=== PATIENT | male | born 1990 | race Caucasian/White ===

== ENCOUNTER 2020-10-01 17:20 | Emergency (ER) | payer OTHER, SELFPAY ==
--- NOTE | 2020-10-01 18:04 | ED_ITS ---
HPI - General Adult General Chief complaint: Upper Respiratory Symptoms Stated complaint: Flu like symptoms Time Seen by Provider: 10/01/20 17:57 Source: patient Limitations: no limitations History of Present Illness HPI narrative: Patient comes emergency room complaining of subjective fever, chills, headache for, not feeling well for 2-3 days. Patient states he tested negative for COVID-19 over a month ago. Patient denies fever, chills Onset (ago): day(s) Related Data Previous Rx's Medication Instructions Recorded ibuprofen 600 mg PO TID PRN #14 tab 10/01/20 Allergies Allergy/AdvReac Type Severity Reaction Status Date / Time No Known Allergies Allergy Verified 08/02/20 13:09 Review of Systems Review of Systems: Constitutional : Complaining of general malaise and fatigue, subjective fever and chills ENT/Mouth : No Hearing loss, No Ear Pain, No Nasal Congestion, No Sinus Pain, No Hoarseness, No sore throat, No Rhinorrhea, No Swallowing Difficulty Eyes: No Eye Pain, No Swelling, No Redness, No Foreign Body, No Discharge, No Vision Changes Cardiovascular : No Chest Pain, No SOB, No Dyspnea on Exertion, No Orthopnea, No Edema, No Palpitations Respiratory : No Cough, No Sputum, No Wheezing, No Smoke Exposure, No Dyspnea Gastrointestinal : No Nausea, No Vomiting, No Diarrhea, No Constipation, No abdominal Pain, No Hematochezia, No Melena Genitourinary : no irregular bleeding, No Dysuria, No Urinary Frequency, No Hematuria, No Urinary Incontinence, No Urgency, No Flank Pain, No Urinary Flow Changes, No Hesitancy Musculoskeletal : No joint pain, No Myalgias, No Joint Swelling Skin : No Skin Lesions, No rash Neuro : No Weakness, No Numbness, No Paresthesias, No Loss of Consciousness, No Dizziness, patient complaining of headache Psych : No Anxiety/Panic, No Depression, No SI/HI/AH/VH, No Social Issues, Heme/Lymph: No Bruising, No Bleeding,No Lymphadenopathy Endocrine : No Polyuria, No Polydipsia, No Temperature Intolerance [facility] Family History Family History (Updated 08/02/20 @ 13:15 by Marcela Ferrell, RMA, SHELL FREEZING MACHINE OPERATOR) Father Unknown family medical history Mother No problems noted. Maternal Grandfather No problems noted. Maternal Grandmother No problems noted. Paternal Grandfather No problems noted. Paternal Grandmother No problems noted. Brother No problems noted. Brother No problems noted. Sister No problems noted. Sister No problems noted. Sister No problems noted. Sister No problems noted. Social History Social History Alcohol intake: never Smoking Status: Never smoker Substance Use Type: Marijuana Substance Use Frequency: Occasionally Advance Directives: No Advance Directives Information Provided: No Physical Exam Vital Signs: Vital Signs: Last Vital Signs Temp 96.8 F 10/01/20 18:46 Pulse 60 10/01/20 18:46 Resp 17 10/01/20 18:46 BP 123/70 10/01/20 18:46 Pulse Ox 100 10/01/20 18:46 Body Mass Index 19.8 Appearance: Alert. Oriented X3. No acute distress. Eyes: Pupils equal, round and reactive to light. ENT: Pharynx normal. Neck: Normal inspection. Neck supple. No lymph nodes noted. No crepitus CVS: Normal heart rate and rhythm. Pulses normal. Normal S1 and S2 Respiratory: No respiratory distress. Breath sounds normal. No Wheezing. No rales Abdomen: Soft and nontender. No rigidity. No distention. good BS x4 Skin: Skin warm and dry. Normal skin color. Normal skin turgor. Extremities: No lower extremity edema. No lower extremity edema. No Lacerations. No Rash Neuro: Oriented X 3. No motor deficit. No sensory deficit. Moving all extermities. No slurred speech. Course Course Course Narrative: Patient's vitals within normal limits, patient tested for COVID-19. Discharge Plan Discharge Clinical Impression: Viral infection Patient Disposition: Home, Self-Care Instructions: Viral Syndrome (ED) Additional Instructions: You were tested for COVID-19, you will receive your results in approximately 72 hours, you will receive a phone call if they are positive. The self isolate until you have your results. If he tests positive, please self isolate for 14 days. Prescriptions: New ibuprofen 600 mg tablet 600 mg PO TID PRN (Reason: fever or pain) Qty: 14 RF: 0
[2020-10-01 18:46] VITALS: BP 123/70; PULSE 60; RESP 17; TEMP 36; O2SAT 100; BMI 19.8
[2020-10-01] MEDS: Ibuprofen 600 MG TABLET PO (19:00)
== END 2020-10-01 19:22 | disposition home or self-care (01) ==
PROVIDERS: Emergency Provider Emergency Medicine; PCP Nurse Practitioner Family
DX: B34.9 Viral infection, unspecified (principal); Z20.828 Contact with and (suspected) exposure to other viral communicable diseases; R51.9 Headache, unspecified
CPT/HCPCS: 99283; U0003

== ENCOUNTER 2020-10-15 13:10 | Emergency (ER) | payer OTHER, SELFPAY ==
[2020-10-15 13:20] VITALS: BP 117/74; PULSE 58; RESP 16; TEMP 36.3; O2SAT 98; BMI 19.8
--- NOTE | 2020-10-15 13:41 | ED_ITS ---
HPI - Recheck/Abnormal Lab/Rx General Chief Complaint: Recheck/Abnormal Lab/Rx Stated Complaint: covid testing - Time Seen by Provider: 10/15/20 13:40 Source: patient Mode of arrival: ambulatory Limitations: no limitations History of Present Illness HPI narrative: Otherwise healthy 29-year-old male with no significant past medical history diagnosed with COVID-19 12 days ago during which episode he has some myalgias and chills he reports his symptoms have fully resolved and returns today seeking a negative COVID test. States not currently working. No other symptoms at this time. Symptoms since prior visit: no new symptoms Related Data Previous Rx's Medication Instructions Recorded ibuprofen 600 mg PO TID PRN #14 tab 10/01/20 Allergies Allergy/AdvReac Type Severity Reaction Status Date / Time No Known Allergies Allergy Verified 08/02/20 13:09 Review of Systems Review of Systems: Constitutional: No Weight loss, No Fever, No Chills, No Night Sweats, No Fatigue, No Malaise ENT/Mouth: No Hearing loss, No Ear Pain, No Nasal Congestion, No Sinus Pain, No Hoarseness, No sore throat, No Rhinorrhea, No Swallowing Difficulty Eyes: No Eye Pain, No Swelling, No Redness, No Foreign Body, No Discharge, No Vision Changes Cardiovascular: No Chest Pain, No SOB, No Dyspnea on Exertion, No Orthopnea, No Edema, No Palpitations Respiratory: No Cough, No Sputum, No Wheezing, No Dyspnea Gastrointestinal: No Nausea, No Vomiting, No Diarrhea, No Constipation, No abdominal Pain, No Hematochezia, No Melena Genitourinary: no irregular bleeding, No Dysuria, No Urinary Frequency, No Hematuria, No Urinary Incontinence, No Urgency, No Flank Pain, No Urinary Flow Changes, No Hesitancy Musculoskeletal: No joint pain, No Myalgias, No Joint Swelling Skin: No Skin Lesions, No rash Neuro: No Weakness, No Numbness, No Paresthesias, No Loss of Consciousness, No Dizziness, No Headache Psych: No Social Issues Heme/Lymph: No Bruising, No Bleeding,No Lymphadenopathy Endocrine: No Polyuria, No Polydipsia, No Temperature Intolerance Yes all other systems are reviewed and are negative PMFSH Past Medical History Medical History (Updated 10/15/20 @ 13:45 by Clem Cotter NP) Patient denies significant medical history Surgical History (Updated 10/15/20 @ 13:24 by Victorina Chery) No significant past surgical history Family History Family History (Updated 08/02/20 @ 13:15 by Marcela Ferrell, RMA, METAL INSPECTOR) Father Unknown family medical history Mother No problems noted. Maternal Grandfather No problems noted. Maternal Grandmother No problems noted. Paternal Grandfather No problems noted. Paternal Grandmother No problems noted. Brother No problems noted. Brother No problems noted. Sister No problems noted. Sister No problems noted. Sister No problems noted. Sister No problems noted. Social History Social History Alcohol intake: never Smoking Status: Never smoker Substance Use Type: Marijuana Advance Directives: No Advance Directives Information Provided: No Physical Exam Vital Signs: Vital Signs: Last Vital Signs Temp 97.3 F 10/15/20 13:20 Pulse 58 10/15/20 13:20 Resp 16 10/15/20 13:20 BP 117/74 10/15/20 13:20 Pulse Ox 98 10/15/20 13:20 Body Mass Index 19.8 Reviewed Const: General: cooperative and healthy appearing; No acute distress or intoxicated appearing Nutritional Appearance: average body habitus Orientation/consciousness: patient oriented x3 HENMT: Head: Yes normal to inspection Ears: hearing grossly normal bilaterally Eyes: General: appearance normal, both eyes and all related structures Visual Moralez: normal visual moralez by confrontation Neck: Neck: Yes normal visual inspection, No positive Brudzinski's sign, No positive Kernig's sign and No tender Thyroid: Thyroid normal Chest: Chest palpation & inspection: normal inspection of the chest Resp: Effort & Inspection: normal respiratory effort Auscultation: clear to auscultation bilaterally Cardio: Jugular venous distension: no JVD Rhythm: regular rhythm Heart sounds: S1 normal heart sound present and S2 normal heart sound present GI: Inspection: Yes normal to inspection Percussion: Yes normal to percussion Auscultation: normal bowel sounds : General: Yes no CVA tenderness Back/Spine/Pelvis: Back: no CVA tenderness Skin: General skin exam: no rashes or lesions noted Neuro: General: patient oriented x3 Extrem: General: Yes normal to inspection Course Course Course Narrative: Completely asymptomatic. Aware that he could still have some viral stranding given that he had a recent positive. He has been symptom-free for almost 5 days now I am okay with doing a repeat test but he knows they could be false positive and can be false-positive for up to 10 weeks. States he would like to just wait and get retested in a couple months and defers at this time. Will continue to follow CDC/state guidelines for isolation/discussing. Discharge Plan Discharge Clinical Impression: Well adult exam Patient Disposition: Home, Self-Care Instructions: Normal Exam (ED) Prescriptions: No Action ibuprofen 600 mg tablet 600 mg PO TID PRN (Reason: fever or pain) Qty: 14 RF: 0
--- NOTE | 2020-10-15 13:47 | PC.NURSE ---
PT SEEN BY LIZETH OLEARY NP. PLAN IS FOR DC HOME. PT AGREEABLE TO PLAN. PT HAS NO SYMPTOMS OR COMPLAINTS AT THIS TIME
== END 2020-10-15 13:55 | disposition home or self-care (01) ==
PROVIDERS: Emergency Provider Emergency Medicine; PCP Nurse Practitioner Family
DX: Z71.1 Person with feared health complaint in whom no diagnosis is made (principal); Z86.16 Personal history of COVID-19
CPT/HCPCS: 99283; 99284

== ENCOUNTER 2021-01-21 21:31 | Emergency (ER) | payer OTHER, SELFPAY ==
[2021-01-21 21:41] VITALS: BP 130/74; PULSE 78; O2SAT 99
[2021-01-22 00:14] VITALS: BP 113/52; PULSE 61; RESP 16; TEMP 36.7; O2SAT 99
[2021-01-22 02:18] VITALS: BP 116/66; PULSE 51; RESP 18; TEMP 36.7; O2SAT 99; BMI 19.3
--- NOTE | 2021-01-22 03:44 | ED_ITS ---
HPI - Abdominal Pain General Chief Complaint: Abdominal Pain Stated Complaint: Abdominal pain Time Seen by Provider: 01/22/21 03:44 Related Data Previous Rx's Medication Instructions Recorded ibuprofen 600 mg PO TID PRN #14 tab 10/01/20 Allergies Allergy/AdvReac Type Severity Reaction Status Date / Time No Known Allergies Allergy Verified 01/10/21 10:17 Physical Exam Vital Signs: Vital Signs: Last Vital Signs Temp 98.0 F 01/22/21 02:18 Pulse 51 01/22/21 02:18 Resp 18 01/22/21 02:18 BP 116/66 01/22/21 02:18 Pulse Ox 99 01/22/21 02:18 Body Mass Index 19.3 Discharge Plan Discharge Prescriptions: No Action ibuprofen 600 mg tablet 600 mg PO TID PRN (Reason: fever or pain) Qty: 14 RF: 0 Interventions: LWBS Worksheet Last Done: 01/21/21 23:18 PMFSH Past Medical History Medical History (Updated 01/22/21 @ 02:19 by Giovanna Murray) Hernia Patient denies significant medical history Surgical History No significant past surgical history Family History Family History Father Unknown family medical history Mother No problems noted. Maternal Grandfather No problems noted. Maternal Grandmother No problems noted. Paternal Grandfather No problems noted. Paternal Grandmother No problems noted. Brother No problems noted. Brother No problems noted. Sister No problems noted. Sister No problems noted. Sister No problems noted. Sister No problems noted. Social History Social History Alcohol intake: never Smoking Status: Never smoker Use of substances other than those prescribed or required for medical reasons: Yes Substance Use Type: Marijuana Substance Use Frequency: Socially Advance Directives: No
--- NOTE | 2021-01-22 04:26 | PC.NURSE ---
0330 Provider attempted to see patient and patient not in room, hospital gown on bed.
== END 2021-01-22 03:44 | disposition left against medical advice (07) ==
PROVIDERS: Emergency Provider Emergency Medicine
DX: R10.9 Unspecified abdominal pain (principal)
CPT/HCPCS: 99281; 99284

== ENCOUNTER 2021-03-06 09:04 | Outpatient (REF) | payer OTHER, SELFPAY ==
--- NOTE | ~2021-03-06 | US_ITS ---
EXAMINATION: US THYROID CLINICAL INFORMATION: Iodine deficiency. COMPARISON: Ultrasound thyroid soft tissues neck 05/14/2016 TECHNIQUE: Linear transducer valverde-scale and color Doppler examination with attention to the region of the thyroid. FINDINGS: SIZE: Measurements of the thyroid lobes and nodules are given in sagittal, anteroposterior and transverse dimensions respectively. Right Thyroid Lobe: 4.4 x 1.4 x 1.8 cm, volume 5.8 mL. Previously 4.1 x 1.4 x 2.0 cm, volume 5.8 mL. Parenchyma: The gland echotexture is homogeneous. Thyroid vascularity is normal. Left Thyroid Lobe: 3.7 x 1.4 x 1.4 cm, volume 3.6 mL. Previously 3.6 x 1.3 x 1.3 cm, volume 3.3 mL. Parenchyma: The gland echotexture is homogeneous. Thyroid vascularity is normal. Isthmus: 0.27 cm in maximum AP dimension. Previously 0.20 cm. Estimated total number of nodules greater than or equal to 1 cm: 0. Investigator Vice nodules are described as follows: NODES: No lymphadenopathy is seen in the tissue surrounding the thyroid gland. US/US thyroid IMPRESSION: Minimal enlargement of right thyroid gland. No abnormal nodules seen. The left gland is unremarkable. ACR TI-RADS RECOMMENDATION REFERENCE: Ultrasound-guided fine-needle aspiration, followup ultrasound, no further followup. * TR1 (0 point) and TR 2 (2 points): No FNA or followup. * TR3 (3 points): FNA if more than or equal to 2.5 cm in maximum dimension, followup ultrasound in 1, 3 and 5 years if 1.5 to 2.4 cm in maximum dimension. * TR4 (4-6 points): FNA if more than or equal to 1.5 cm in maximum dimension, followup ultrasound in 1, 2, 3 and 5 years if 1 to 1.4 cm in maximum dimension. * TR5 (more than or equal to 7 points): FNA if more than or equal to 1 cm in maximum dimension, followup ultrasound every year for 5 years if 0.5 to 0.9 cm in maximum dimension. * TR3, TR4 or TR5 nodules that are below the size threshold for followup receive no followup.
== END 2021-03-06 09:05 | disposition home or self-care (01) ==
LOC: HO.US 09:04
PROVIDERS: PCP Nurse Practitioner Family; Visit Provider Nurse Practitioner Family
DX: E01.0 Iodine-deficiency related diffuse (endemic) goiter (principal)
CPT/HCPCS: 76536

== ENCOUNTER 2021-09-06 09:25 | Outpatient (REF) | payer OTHER, SELFPAY | END 2021-09-06 09:26 | disposition home or self-care (01) | LOC: HO.LAB 09:25 | PROVIDERS: PCP Nurse Practitioner Family; Visit Provider Internal Medicine | DX: Z20.822 Contact with and (suspected) exposure to COVID-19 (principal) | CPT/HCPCS: C9803; U0003; U0005 ==

== ENCOUNTER 2021-09-30 22:56 | Emergency (ER) | payer OTHER, SELFPAY ==
[2021-09-30 23:55] VITALS: BP 124/70; PULSE 58; RESP 18; TEMP 37; O2SAT 98; BMI 19.8
[2021-10-01 02:00] VITALS: BP 124/70; PULSE 58; RESP 18; TEMP 37; O2SAT 98
--- NOTE | 2021-10-01 02:17 | ED_ITS ---
HPI - General Adult General Chief complaint: General Medical Stated complaint: Abdominal pain Time Seen by Provider: 10/01/21 02:17 Source: patient Mode of arrival: ambulatory Limitations: no limitations History of Present Illness HPI narrative: Patient with history of Leoncio fundoplication and 02/2017 had laparoscopic evaluation on 07/02 no hernia abnormality was found patient complaining of abdominal pain for long time same in nature as in past with nausea no vomiting Related Data Previous Rx's Medication Instructions Recorded ibuprofen 600 mg tablet 600 mg PO TID PRN #14 tab 10/01/20 Allergies Allergy/AdvReac Type Severity Reaction Status Date / Time No Known Allergies Allergy Verified 01/10/21 10:17 Review of Systems Review of Systems: Yes all other systems are reviewed and are negative [facility] Past Medical History Medical History (Updated 10/01/21 @ 07:03 by Evan Deluna MD) Chronic abdominal pain Surgical History (Updated 10/01/21 @ 07:01 by Evan Deluna MD) History of Leoncio fundoplication Family History Family History Father Unknown family medical history Mother No problems noted. Maternal Grandfather No problems noted. Maternal Grandmother No problems noted. Paternal Grandfather No problems noted. Paternal Grandmother No problems noted. Brother No problems noted. Brother No problems noted. Sister No problems noted. Sister No problems noted. Sister No problems noted. Sister No problems noted. Social History Social History Alcohol intake: never Patient Tobacco Use Status: Never used Tobacco Use of substances other than those prescribed or required for medical reasons: Yes Substance Use Type: Marijuana Advance Directives: No Advance Directives Information Provided: No Physical Exam Vital Signs: Vital Signs: Last Vital Signs Temp 98.6 F 10/01/21 02:00 Pulse 58 10/01/21 02:00 Resp 18 10/01/21 02:00 BP 124/70 10/01/21 02:00 Pulse Ox 98 10/01/21 02:00 BMI result Body Mass Index 19.8 Appearance: Alert. Oriented X3. No acute distress. Eyes: No pallor or icterus ENT: Pharynx normal. Oral Mucosa moist Neck: Normal inspection. Neck supple. CVS: Normal heart rate and rhythm. Pulses normal. Respiratory: No respiratory distress. Equal air entry bilateral, no wheezing/rales/rhonchi Abdomen: Soft mild tenderness right upper quadrant, no rebound tenderness or guarding Bowel sounds are present, no mass palpable, no CVA tenderness Skin: Skin warm and dry. Normal skin color. Normal skin turgor. Neuro: Oriented X 3. Course Course Course Narrative: Patient eloped from the ER without CT scan or further workup Discharge Plan Discharge Clinical Impression: Abdominal pain, chronic, right upper quadrant Patient Disposition: Elopement Prescriptions: No Action ibuprofen 600 mg tablet 600 mg PO TID PRN (Reason: fever or pain) Qty: 14 RF: 0 Interventions: ED Discharge Assessment Last Done: 10/01/21 02:58 Discharge Date/Time: 10/01/21 03:05 Print Language: Iranian
== END 2021-10-01 03:05 | disposition left against medical advice (07) ==
LOC: HO.ED 10-01 03:08
PROVIDERS: Emergency Provider Internal Medicine
DX: R10.11 Right upper quadrant pain (principal); G89.29 Other chronic pain
CPT/HCPCS: 99283; 99284

== ENCOUNTER 2021-12-23 11:33 | Outpatient (REF) | payer OTHER, SELFPAY ==
[2021-12-23 13:51] LABS: Appearance Urine CLEAR; Color Urine YELLOW; Glucose Urine UA NEG (NEG); Leukocyte Esterase Urine NEG (NEG); Nitrite Urine NEG (NEG); PH 8.5 (5.0-8.0); Specific Gravity - Urine 1.015 (1.005-1.025); Urine Blood NEG (NEG); Urine Ketones NEG (NEG); Urine Protein TRACE MG/DL (NEG-TRACE)
[2021-12-23 13:54] LABS: MANUAL DIFF FLAG NO
[2021-12-23 13:57] LABS: Basophils Absolute Auto 0.1 X10*3/uL (0.0-0.2); Basophils Percent Auto 0.6 % (0-2); Eosinophils Absolute Auto 0.3 X10*3/uL (0.0-0.4); Eosinophils Percent Auto 4.1 % (0-4); Hematocrit 45.6 % (42.0-52.0); Hemoglobin 15.5 g/dl (14.0-18.0); Imm Gran Abs Auto 0.02 X10*3/uL (0.00-0.03); Imm Gran Pct Auto 0.3 % (0.0-0.4); Lymphocytes Absolute Auto 1.8 X10*3/uL (1.2-4.9); Lymphocytes Percent Auto 22.4 % (20-40); Mean Corpuscular Hemoglobin 30.7 pg (27.0-33.0); Mean Corpuscular Volume 90.3 fL (80.0-98.0); Mean Platelet Volume 11.9 fL (9.4-12.4); Monocytes Absolute Auto 0.6 X10*3/uL (0.1-1.2); Monocytes Percent Auto 7.3 % (2-11); Neutrophils Absolute Auto 5.2 x10*3/uL (2.0-8.3); Neutrophils Percent Auto 65.3 % (45-73); Platelet Count 155 X10*3/uL (160-400); Red Blood Count 5.05 X10*6/uL (4.60-5.80); Red Cell Distribution Width 11.9 % (11.0-16.0)
[2021-12-23 14:08] LABS: Alanine Aminotransferase 27 U/L (0-40); Albumin Level 4.4 g/dL (3.5-5.0); Alkaline Phosphatase 59 U/L (39-117); Anion Gap 12 (12-20); Aspartate Amino Transferase 24 U/L (5-37); Bilirubin Total 0.7 mg/dL (0.0-1.0); Blood Urea Nitrogen 7 mg/dL (9-16); Calcium 9.7 mg/dL (8.4-10.2); Carbon Dioxide 27 mmol/L (22-29); Chloride 106 mmol/L (96-108); Cholesterol 210 mg/dL; Estimated Glomerular Filt Rate > 60; Glucose Fasting 90 mg/dL (60-99); HDL Cholesterol 48 mg/dL; LDL Cholesterol Calculated 125 mg/dl; Potassium 4.6 mmol/L (3.3-5.1); Sodium 140 mmol/L (135-145); Total Protein 7.7 g/dL (6.5-8.0); Triglycerides 187 mg/dL
== END 2021-12-23 11:34 | disposition home or self-care (01) ==
LOC: HO.HMGCLDS 11:33
PROVIDERS: Visit Provider Nurse Practitioner Family
DX: R10.11 Right upper quadrant pain (principal)
CPT/HCPCS: 36415; 80053; 80061; 81003; 84443; 85025